=== PATIENT | male | born 1975 | race Caucasian/White ===

== ENCOUNTER 2020-11-01 21:02 | Observation (INO) | payer BC ==
[~2020-11-01] VITALS: Ht 180.3 cm; Wt 88.5 kg
[~2020-11-01 21:02] MED LIST: ATIVAN1 MG PO; BAYER CHEWABLE81 MG PO; CELEXA20 MG PO; CRESTOR20 MG PO; GLIMEPIRIDE1 MG; GLUCOPHAGE500 MG; HYDROCODON-ACE1 EA10 PO; JARDIANCE10 MG PO; LISINOPRIL30 MG PO; OZEMPIC1 MG/0.75 SC; SYNTHROID175 MCG PO
[2020-11-01 22:24] LABS: BASOPHILS 0.6 % (0-2); EOSINOPHILS 3.2 % (0-7); HEMATOCRIT 46.1 % (42.0-54.0); HEMOGLOBIN 16.1 g/dL (13.5-17.5); LYMPHOCYTES 18.7 % (15-50); MCH 28.9 pg (26.0-34.0); MCHC 34.9 g/dL (31.0-37.0); MCV 82.8 fL (80.0-100.0); MEAN PLATELET VOLUME 7.9 fL (7.4-10.4); MONOCYTES 10.8 % (2-11); NEUTROPHILS 66.7 % (40-80); PLATELET COUNT 283 10x3/uL (130-400); RBC 5.57 10x6/uL (4.20-6.10)
[2020-11-01 22:30] LABS: CALC OSMOLALITY 278 mosm/kg (275-300); CALCIUM 9.4 mg/dL (8.5-10.1); CARBON DIOXIDE 25.5 mmol/L (21.0-32.0); CHLORIDE - SERUM 100 mmol/L (98-107); GLUCOSE 230 mg/dL (74-106); POTASSIUM - SERUM 4.1 mmol/L (3.5-5.1); SODIUM 136 mmol/L (136-145); UREA NITROGEN 13 mg/dL (7-18); eGFR NON AFRICAN AMERICAN 86 mL/min (90-120)
[2020-11-01 22:55] LABS: ALBUMIN 4.2 g/dL (3.4-5.0); ALKALINE PHOSPHATASE 96 U/L (30-120); ALT (SGPT) 36 U/L (10-68); BILIRUBIN - TOTAL 0.35 mg/dL (0.2-1.3); C-REACTIVE PROTEIN 0.7 mg/dL (0.0-0.9); PROTEIN - SERUM 7.4 g/dL (6.4-8.2)
[2020-11-02] VITALS (8 sets, daily range): BP systolic 118–153; BP diastolic 50–95; Ht 180.3 cm; Wt 88.5 kg
--- NOTE | 2020-11-02 00:30 | NUR ---
PT BROUGHT BACK TO ROOM AT THIS TIME FROM WAITING ROOM.
[2020-11-02 01:11] LABS: CREATINE KINASE 109 UL (21-232); MAGNESIUM - SERUM 1.9 mg/dL (1.8-2.4); TROPONIN-I < 0.017 ng/mL (0.000-0.060)
--- NOTE | 2020-11-02 01:30 | NUR ---
RECEIVED PT FROM VADIM PADILLA. PT RESTING IN BED COMFORTABLY, AT BEDSIDE. RESPIRATION EVEN AND NON LABORED.
[2020-11-02 03:42] LABS: BASOPHILS 1.1 % (0-2); HEMATOCRIT 39.8 % (42.0-54.0); LYMPHOCYTES 20.8 % (15-50); MCH 29.5 pg (26.0-34.0); MCHC 35.2 g/dL (31.0-37.0); MCV 83.6 fL (80.0-100.0); MEAN PLATELET VOLUME 7.8 fL (7.4-10.4); MONOCYTES 11.1 % (2-11); PLATELET COUNT 230 10x3/uL (130-400); RBC 4.76 10x6/uL (4.20-6.10); RDW 13.2 % (11.5-14.5); WBC 9.9 10x3/uL (4.8-10.8)
[2020-11-02 03:53] LABS: ALBUMIN 3.4 g/dL (3.4-5.0); ALKALINE PHOSPHATASE 82 U/L (30-120); ALT (SGPT) 29 U/L (10-68); BILIRUBIN - TOTAL 0.28 mg/dL (0.2-1.3); CALC OSMOLALITY 278 mosm/kg (275-300); CALCIUM 8.5 mg/dL (8.5-10.1); CARBON DIOXIDE 28.7 mmol/L (21.0-32.0); CHLORIDE - SERUM 103 mmol/L (98-107); CREATININE - SERUM 0.9 mg/dL (0.6-1.3); GLUCOSE 229 mg/dL (74-106); SODIUM 136 mmol/L (136-145); UREA NITROGEN 13 mg/dL (7-18); eGFR NON AFRICAN AMERICAN > 90 mL/min (90-120)
[2020-11-02 03:56] LABS: APTT 27.1 SECONDS (22.8-39.4); INR 1.01 (0.85-1.17); PROTIME 12.3 SECONDS (11.6-15.0)
--- NOTE | 2020-11-02 04:01 | NUR ---
RESPIRATIONS EVEN AND NON LABORED, REPORTS RELIEF OF PAIN AND STATES HE CAN "NOW RELAX" CALL LIGHT WITHIN REACH. URINAL EMPTIED AT THIS TIME, APPROX 875ML CLEAR YELLOW URINE.
--- NOTE | 2020-11-02 06:14 | NUR ---
bs 201
[2020-11-02] MEDS ORDERED: TRESIBA FL100 UNIT/1 SQ (08:40)
--- NOTE | 2020-11-02 08:58 | NUR ---
ASSESSMENT PER FLOW SHEET. PATIENT IS WITHOUT DISTRESS. RED RAISED AREA NOTED TO LEFT POSTERIOR ARM.SCD'D ON PATIENT.IS INSTRUCTED WITH RETURN DEMONSTARTION 4000 ML.CALL LIGHT IN REACH
[2020-11-02 11:16] LABS: UDS - AMPHET NEGATIVE QUAL (NEGATIVE); UDS - BARB NEGATIVE QUAL (NEGATIVE); UDS - BENZO NEGATIVE QUAL (NEGATIVE); UDS - COCAINE NEGATIVE QUAL (NEGATIVE); UDS - OPIATE POSITIVE QUAL (NEGATIVE); UDS - PCP NEGATIVE QUAL (NEGATIVE); UDS - THC NEGATIVE QUAL (NEGATIVE)
[2020-11-02 11:38] LABS: BILIRUBIN NEGATIVE (NEGATIVE); KETONE NEGATIVE mg/dL (< 1+); NITRITE NEGATIVE (NEGATIVE); PH 7.5 (5.0-8.0); UROBILINOGEN NORMAL mg/dL (< 2)
--- NOTE | 2020-11-02 12:49 | NUR ---
PATIENT REQUEST BLOOD SUGAR BE TREATED 30 MIN AFTER MEAL. HE STATES HIS BLOOD SUGAR DROPS AFTER EATING.
--- NOTE | 2020-11-02 12:54 | NUR ---
IV RIGHT HAND LEAKING,DCD WITH CATH TIP INTACT.
--- NOTE | 2020-11-02 19:55 | NUR ---
PATIENT RESTING IN BED WITH NO S/S OF DISTRESS AND DENIES NEEDS AT THIS TIME. BED IN LOWEST POSITION AND CALL LIGHT IN REACH. ENCOURAGED PATIENT TO CALL WITH NEEDS.
--- NOTE | 2020-11-02 22:30 | NUR ---
ADMINISTERED MEDS PER ORDERS. PATIENT SANDY WELL. ENCOURAGED PATIENT TO CALL WITH NEEDS.
[2020-11-03 04:00] VITALS: BP 110/71
[2020-11-03 06:09] LABS: BASOPHILS 0.9 % (0-2); EOSINOPHILS 5.6 % (0-7); HEMATOCRIT 41.7 % (42.0-54.0); HEMOGLOBIN 14.5 g/dL (13.5-17.5); LYMPHOCYTES 20.5 % (15-50); MCH 29.2 pg (26.0-34.0); MCHC 34.9 g/dL (31.0-37.0); MCV 83.7 fL (80.0-100.0); MONOCYTES 11.4 % (2-11); NEUTROPHILS 61.6 % (40-80); PLATELET COUNT 226 10x3/uL (130-400); RBC 4.98 10x6/uL (4.20-6.10); WBC 9.1 10x3/uL (4.8-10.8)
[2020-11-03 06:48] LABS: ALBUMIN 3.2 g/dL (3.4-5.0); ALKALINE PHOSPHATASE 70 U/L (30-120); ALT (SGPT) 30 U/L (10-68); BILIRUBIN - TOTAL 0.36 mg/dL (0.2-1.3); CALCIUM 8.2 mg/dL (8.5-10.1); CARBON DIOXIDE 27.7 mmol/L (21.0-32.0); CHLORIDE - SERUM 103 mmol/L (98-107); CREATININE - SERUM 0.9 mg/dL (0.6-1.3); MAGNESIUM - SERUM 1.8 mg/dL (1.8-2.4); PROTEIN - SERUM 5.9 g/dL (6.4-8.2); SODIUM 139 mmol/L (136-145); UREA NITROGEN 11 mg/dL (7-18); eGFR NON AFRICAN AMERICAN > 90 mL/min (90-120)
[2020-11-03 06:52] LABS: CALC OSMOLALITY 280 mosm/kg (275-300); GLUCOSE 169 mg/dL (74-106)
[2020-11-03 08:27] VITALS: BP 134/72
--- NOTE | 2020-11-03 09:27 | NUR ---
ASSESSMENT PER FLOW SHEET. PATIENT IS WITHOUT DISTRESS. PRE MEDS ORDERED PER MAR. VANC TO OR WITH PATIENT. HAS VOIDED. TO OR VIA BED.
[2020-11-03 10:59] VITALS: BP 131/79
--- NOTE | 2020-11-03 11:00 | NUR ---
BACK FROM PACU. DSG LEFT UPPER ARM CDI. PATIENT WITHOUT SIGNS OF PAIN. AWAKENS WHEN SPOKEN TO. MONITOR FOR NEEDS
[2020-11-03 13:02] VITALS: BP 107/61
[2020-11-03] MEDS ORDERED: HYDROCODON-ACE1 EAC7 PO (15:07)
[2020-11-03] MEDS ORDERED: DOXYCYCLINE HY100 M2 PO (15:08)
--- NOTE | 2020-11-03 16:55 | NUR ---
DISCHARGE INSTRUCTIONS,STATES UNDERSTANDING.IV VANC INFUSING. WILL DC HOME WHEN COMPLETE
--- NOTE | 2020-11-03 17:09 | MORECARE ---
CASE MANAGEMENT DISCHARGE SUMMARY PATIENT: DUSTIN SHUKLA UNIT: [id number] ADM DATE: 11/02/20 AGE: 45 : 75 SEX: M ROOM/BED: D.2235 AUTHOR: PAULO,DOC PHYSICIAN: REFERRING PHYSICIAN: KITTY HODGSON DO DATE OF SERVICE: 11/03/20 Case Management Discharge Planning Summary COMMENTS ENTERED DATE: 11/03/20 17:06 CT COMMENT TYPE: Discharge Planning REVIEWER: Ronaldo Downs CM met with patient to complete DC plan and to evaluate needs. Patient lives independently with his spouse, Lucía Shukla, . Patient stated that his home is safe and has electricity and running water. Patient stated that he has no problems paying for medications and he fills his medications at [facility] [address]. Patient stated that his primary care physician is Dr. Liu in [place] or Dr. Reyes. At discharge, the patient plans to return home and feels this is a safe discharge. CM discussed availability of home health, rehab services, and medical equipment. Patient declined HHS, SNF, IPR, and DME. Patient voiced no other needs at this time and is satisfied with DC plan. CM will continue to follow and will assist as needed with dc plans/needs. DCP REVIEW SUMMARY ANTICIPATED D/C DATE: 11/03/2020 EXPECTED LOS : 1 CASE STATUS: DCP Initiated INITIAL REVIEW: 11/02/2020 INITIAL REVIEWER: Ronaldo Downs FINAL DISCHARGE DISPOSITION: : FINAL REVIEWER: FINAL REVIEW DATE: DCP Focus Questions & Answers DCP Evaluation QUESTION: ANSWER Patient and/or caregiver agree upon recommended discharge plan? : Yes Patient's current cognitive status: : *Oriented to person, place, situation, time and present Patient's ability to cope with chronic illness : d. No chronic illness Patient gives permission to discuss discharge plans with: (name, relationship and number) : spouse, Lucía Shukla, Family / Caregiver's ability to cope with chronic illness: : a. Adequate (ability to meet patient's medical needs, ensures patient attends medical appts.) Does the patient have the ability to pay for or attain post discharge needs / services? : Yes Functional screen assessment: : Basic needs can adequately be met by self Family / Caregiver's ability to cope with chronic illness: : a. Adequate (ability to meet patient's medical needs, ensures patient attends medical appts.) Physical Status: : Independent with ADL's Equipment needed for post hospitalization: : None Is there a likelihood that the patient will require additional services to return to the preadmission environment? : No Living Arrangements: : Home with Spouse/Significant Other Patient with capacity for self-care or can be cared for in same environment as prior to hospitalization? : Yes Baseline cognitive status: : *Oriented to person, place, situation, time and present Physical environment modification needed / anticipated for discharge: : No Medication Management: : Patient states can read and understand medication labels Medication Management: : Patient states can afford medications Pharmacy [facility](s): : [facility] [address] Does Patient have transportation to get home and to follow-up medical appointments when discharged from the hospital? : Yes Would patient like to participate in any Care Coordination programs (if applicable): : Not applicable Does the patient have electricity at home? : Yes Does the patient have running water in their house? : Yes Equipment in use: : None Mental health screen: : No mental health history DCP Re-evaluation QUESTION: ANSWER Would patient like to participate in any Care Coordination programs (if applicable): : Not applicable PATIENT: DUSTIN SHUKLA ENCOUNTER: [id number] MEDICAL RECORD#: [id number] ADMISSION DATE: 11/02/2020 DISCHARGE DATE: ATTENDING MD: KITTY SOMMERS : AGE: 45 MARITAL STATUS: M DC PLAN ID: [id number] FACILITY: [facility] PRINTED ON: 11/03/20 17:09 CT All edits/amendments must be made on the electronic document DICTATION DATE: 11/03/201708 HYPERCIL CORE TRANSFORMER ASSEMBLER: BRANDI 11/03/201708 RPT#: [id number] DC DATE: STATUS: ADM IN [facility] [address] [place] [address] END OF REPORT
[2020-11-03 17:27] VITALS: BP 107/71
--- NOTE | 2020-11-03 17:37 | NUR ---
PIV TO RIGHT UPPER ARM WITH CATHETER TIP INTACT. DRESSING APPLIED. PT REQUESTS WHEELCHAIR ASSITANCE FOR TRANSPORT HOME.
--- NOTE | 2020-11-03 17:43 | NUR ---
IV DCD BY NATHANIEL Taylor R.N.,CATH TIP INTACT. PATIENT LEFT UNIT VIA WHEELCHAIR FOR TRANSPORT HOME.
--- NOTE | 2020-11-03 17:51 | MORECARE ---
CASE MANAGEMENT DISCHARGE SUMMARY PATIENT: DUSTIN SHUKLA UNIT: [id number] ADM DATE: 11/02/20 AGE: 45 : 75 SEX: M ROOM/BED: D.2235 AUTHOR: PAULO,DOC PHYSICIAN: REFERRING PHYSICIAN: KITTY HODGSON DO DATE OF SERVICE: 11/03/20 Case Management Discharge Planning Summary COMMENTS ENTERED DATE: 11/03/20 17:06 CT COMMENT TYPE: Discharge Planning REVIEWER: Ronaldo Downs CM met with patient to complete DC plan and to evaluate needs. Patient lives independently with his spouse, Lucía Shukla, . Patient stated that his home is safe and has electricity and running water. Patient stated that he has no problems paying for medications and he fills his medications at [facility] [address]. Patient stated that his primary care physician is Dr. Liu in [place] or Dr. Reyes. At discharge, the patient plans to return home and feels this is a safe discharge. CM discussed availability of home health, rehab services, and medical equipment. Patient declined HHS, SNF, IPR, and DME. Patient voiced no other needs at this time and is satisfied with DC plan. CM will continue to follow and will assist as needed with dc plans/needs. DCP REVIEW SUMMARY ANTICIPATED D/C DATE: 11/03/2020 EXPECTED LOS : 1 CASE STATUS: DCP Initiated INITIAL REVIEW: 11/02/2020 INITIAL REVIEWER: Ronaldo Downs FINAL DISCHARGE DISPOSITION: : FINAL REVIEWER: FINAL REVIEW DATE: DCP Focus Questions & Answers DCP Evaluation QUESTION: ANSWER Patient and/or caregiver agree upon recommended discharge plan? : Yes Patient's current cognitive status: : *Oriented to person, place, situation, time and present Patient's ability to cope with chronic illness : d. No chronic illness Patient gives permission to discuss discharge plans with: (name, relationship and number) : spouse, Lucía Shukla, Family / Caregiver's ability to cope with chronic illness: : a. Adequate (ability to meet patient's medical needs, ensures patient attends medical appts.) Does the patient have the ability to pay for or attain post discharge needs / services? : Yes Functional screen assessment: : Basic needs can adequately be met by self Family / Caregiver's ability to cope with chronic illness: : a. Adequate (ability to meet patient's medical needs, ensures patient attends medical appts.) Physical Status: : Independent with ADL's Equipment needed for post hospitalization: : None Is there a likelihood that the patient will require additional services to return to the preadmission environment? : No Living Arrangements: : Home with Spouse/Significant Other Patient with capacity for self-care or can be cared for in same environment as prior to hospitalization? : Yes Baseline cognitive status: : *Oriented to person, place, situation, time and present Physical environment modification needed / anticipated for discharge: : No Medication Management: : Patient states can read and understand medication labels Medication Management: : Patient states can afford medications [facility] [address] Does Patient have transportation to get home and to follow-up medical appointments when discharged from the hospital? : Yes Would patient like to participate in any Care Coordination programs (if applicable): : Not applicable Does the patient have electricity at home? : Yes Does the patient have running water in their house? : Yes Equipment in use: : None Mental health screen: : No mental health history DCP Re-evaluation QUESTION: ANSWER Would patient like to participate in any Care Coordination programs (if applicable): : Not applicable PATIENT: DUSTIN SHUKLA ENCOUNTER: [id number] MEDICAL RECORD#: [id number] ADMISSION DATE: 11/02/2020 DISCHARGE DATE: 11/03/2020 ATTENDING MD: KITTY SOMMERS : AGE: 45 MARITAL STATUS: M DC PLAN ID: [id number] FACILITY: [facility] PRINTED ON: 11/03/20 17:51 CT All edits/amendments must be made on the electronic document DICTATION DATE: 11/03/201750 EMERGENCY CREW SUPERVISOR: BRANDI 11/03/201750 RPT#: [id number] DC DATE:11/03/20 STATUS: DIS IN [facility] [address] [place] [address] END OF REPORT
--- NOTE | 2020-11-04 14:46 | MORECARE ---
CASE MANAGEMENT DISCHARGE SUMMARY PATIENT: DUSTIN SHUKLA UNIT: [id number] ADM DATE: 11/02/20 AGE: 45 : 75 SEX: M ROOM/BED: D.2235 AUTHOR: PAULO,DOC PHYSICIAN: REFERRING PHYSICIAN: KITTY HODGSON DO DATE OF SERVICE: 11/04/20 Case Management Discharge Planning Summary COMMENTS ENTERED DATE: 11/03/20 17:06 CT COMMENT TYPE: Discharge Planning REVIEWER: Ronaldo Downs CM met with patient to complete DC plan and to evaluate needs. Patient lives independently with his spouse, Lucía Shukla, . Patient stated that his home is safe and has electricity and running water. Patient stated that he has no problems paying for medications and he fills his medications at [facility] [address]. Patient stated that his primary care physician is Dr. Liu in [place] or Dr. Reyes. At discharge, the patient plans to return home and feels this is a safe discharge. CM discussed availability of home health, rehab services, and medical equipment. Patient declined HHS, SNF, IPR, and DME. Patient voiced no other needs at this time and is satisfied with DC plan. CM will continue to follow and will assist as needed with dc plans/needs. DCP REVIEW SUMMARY ANTICIPATED D/C DATE: 11/03/2020 EXPECTED LOS : 1 CASE STATUS: DCP Initiated INITIAL REVIEW: 11/02/2020 INITIAL REVIEWER: Ronaldo Downs FINAL DISCHARGE DISPOSITION: : FINAL REVIEWER: FINAL REVIEW DATE: DCP Focus Questions & Answers DCP Evaluation QUESTION: ANSWER Patient gives permission to discuss discharge plans with: (name, relationship and number) : spouse, Lucía Shukla, Patient's ability to cope with chronic illness : d. No chronic illness Patient's current cognitive status: : *Oriented to person, place, situation, time and present Family / Caregiver's ability to cope with chronic illness: : a. Adequate (ability to meet patient's medical needs, ensures patient attends medical appts.) Patient and/or caregiver agree upon recommended discharge plan? : Yes Physical Status: : Independent with ADL's Family / Caregiver's ability to cope with chronic illness: : a. Adequate (ability to meet patient's medical needs, ensures patient attends medical appts.) Functional screen assessment: : Basic needs can adequately be met by self Does the patient have the ability to pay for or attain post discharge needs / services? : Yes Living Arrangements: : Home with Spouse/Significant Other Is there a likelihood that the patient will require additional services to return to the preadmission environment? : No Equipment needed for post hospitalization: : None Baseline cognitive status: : *Oriented to person, place, situation, time and present Patient with capacity for self-care or can be cared for in same environment as prior to hospitalization? : Yes Physical environment modification needed / anticipated for discharge: : No Medication Management: : Patient states can afford medications Medication Management: : Patient states can read and understand medication labels [facility] [address] Does Patient have transportation to get home and to follow-up medical appointments when discharged from the hospital? : Yes Would patient like to participate in any Care Coordination programs (if applicable): : Not applicable Does the patient have electricity at home? : Yes Does the patient have running water in their house? : Yes Equipment in use: : None Mental health screen: : No mental health history DCP Re-evaluation QUESTION: ANSWER Would patient like to participate in any Care Coordination programs (if applicable): : Not applicable PATIENT: DUSTIN SHUKLA ENCOUNTER: [id number] MEDICAL RECORD#: [id number] ADMISSION DATE: 11/02/2020 DISCHARGE DATE: 11/03/2020 ATTENDING MD: KITTY SOMMERS : AGE: 45 MARITAL STATUS: M DC PLAN ID: [id number] FACILITY: [facility] PRINTED ON: 11/04/20 14:46 CT All edits/amendments must be made on the electronic document DICTATION DATE: 11/04/201445 SEED CORN MANAGER PRODUCTION: DM 11/04/201445 RPT#: [id number] DC DATE:11/03/20 STATUS: DIS IN [facility] [address] [place] [address] END OF REPORT
--- NOTE | 2020-11-05 09:51 | OP ---
PATIENT NAME: DUSTIN SHUKLA MEDICAL RECORD: [id number] :75 LOCATION:D.MS [id number] ADMISSION DATE:11/02/20 SURGEON: FLY BURTON MD DATE OF OPERATION: 11/03/2020 PREOPERATIVE DIAGNOSIS: Left arm abscess. POSTOPERATIVE DIAGNOSIS: Left arm abscess. PROCEDURE: Excisional debridement of left arm abscess with packing. The dimensions of the debridement including margins, measured 1.0 cm x 1.0 cm including skin and subcutaneous tissue as well as portion of the abscess cavity. Also, necrotic fat was debrided. SURGEON: Fly Burton MD CORNER CUTTER MACHINE OPERATOR: None. BLOOD LOSS: Minimal. ANESTHESIA: General. COMPLICATIONS: None. The risks, possible complications, and alternatives of the procedure were explained to the patient. He elects to proceed. The discussion specifically included, but was not limited to bleeding requiring emergency reoperation, infection as well as the possible need for revisionary procedure. OPERATIVE COURSE: The patient was cannulated in the operating room electively on 11/03/2020. General anesthesia was induced by the anesthesia staff. The left upper extremity was sterilely prepped and draped. The abscess was easily identifiable. At the center of the circular ring of cellulitis, I sharply excised the skin and subcutaneous tissue as well as portion of the abscess cavity with an 11-blade scalpel. I then curetted out the abscess cavity. Purulence was present. Cultures were obtained. I continued my curettage. I then irrigated with hydrogen peroxide. I then packed the wound with 1/4 inch iodoform tied into knots. A sterile dressing was then applied. The patient was then extubated and conveyed to post-anesthesia care unit where he was in stable condition. We are not going to wait on sensitivities on this patient. I feel pretty certain this is going to represent Staphylococcus organism. He is to follow up with me in the office on Wednesday for packing removal. Actually, he will be seeing my nurse on Wednesday. The wound is not to be repacked. He will be dismissed home on doxycycline as well as hydrocodone. Discharge instructions were given to the patient's . TRANSINT:[id number] Voice Confirmation ID: [id number] DOCUMENT ID: [id number] 11/05/2020 Edited for ip network architect error, dmm. OPERATIVE REPORT [id number] DUSTIN SHUKLA ROBERT MD at 0951 CC: KITTY HODGSON DO [id number] DICTATION DATE: 11/03/20 1239 NURSING INFORMATICS SPECIALIST: 11/03/201920 DIS IN 11/03/20 [facility] [address] [facility] [place] [address]
== END 2020-11-03 17:44 | disposition home or self-care (01) ==
LOC: D.ER 21:02 → D.MS 11-02 00:08 → OBSVTIME 11-02 00:08 → D.EDHOLD 11-02 00:08 → D.MS 11-02 06:00
PROVIDERS: Emergency Medicine; Family Medicine; ADMIT Family Medicine; ATTEND Family Medicine
DX: L03.114 Cellulitis of left upper limb (principal); L02.414 Cutaneous abscess of left upper limb; E11.65 Type 2 diabetes mellitus with hyperglycemia; E03.9 Hypothyroidism, unspecified; F41.9 Anxiety disorder, unspecified; E78.5 Hyperlipidemia, unspecified